=== PATIENT | female | born 1970 | race Caucasian/White ===

== ENCOUNTER → 2021-01-06 | Outpatient (CLI) | payer MEDICAID, SELFPAY | END | disposition home or self-care (01) | PROVIDERS: Referring Provider Physician Assistant Medical; Visit Provider Physician Assistant Medical | DX: J02.0 Streptococcal pharyngitis (principal) | CPT/HCPCS: 87077; 87081 ==

== ENCOUNTER → 2021-04-17 16:43 | Outpatient (CLI) | payer MEDICAID, SELFPAY ==
--- NOTE | 2021-04-17 16:45 | RAD_ITS ---
STUDY: X-RAY RIGHT FOOT, FIRST TOE REASON FOR EXAM: Female, 51 years old. right great toe injury TECHNIQUE: 3 view(s) of the toe were obtained. COMPARISON: None. FINDINGS: An acute oblique fracture is present in the medial corner base distal phalanx of the great toe without displacement. Diffuse surrounding soft tissue swelling is present. Normal visualized metatarsus. Normal metatarsophalangeal (M.T.P) joint. Normal interphalangeal joints. Normal phalanges and interphalangeal joints. The remaining phalanges of the second through fifth digits are normal. RAD/Toe(s) Min 2 Views IMPRESSION: Nondisplaced oblique fracture at the base of the distal phalanx of the great toe Electronically Signed: Dioni Ross MD at 18:19 EDT , Service support ,
== END ==
PROVIDERS: Referring Provider Physician Assistant; Visit Provider Physician Assistant
DX: S92.424A Nondisplaced fracture of distal phalanx of right great toe, initial encounter for closed fracture (principal); X58.XXXA Exposure to other specified factors, initial encounter
CPT/HCPCS: 73660